=== PATIENT | male | born 1960 | race Caucasian/White ===

== ENCOUNTER 2017-11-06 07:19 | Observation (INO) | payer OTHER ==
[~2017-11-06 07:19] MED LIST: CEFAZOLIN 1 GM INJ; METOCLOPRAMIDE 10 MG INJ; ONDANSETRON 4 MG INJ
[2017-11-06] MEDS: SOD CHLORIDE 0.9% 1,000 ML IV ×3 (08:56→19:20)
[2017-11-06] MEDS ORDERED: MIDAZOLAM 1 MG/ML 2 ML INJ (09:01)
[2017-11-06] MEDS ORDERED: FENTAnyl 50 MCG/ML VIAL (09:01)
[2017-11-06] MEDS ORDERED: DEXAMETHASONE 4 MG/ML 1 ML INJ (09:02)
[2017-11-06] MEDS ORDERED: LIDOCAINE 2% (SDV) 5 ML INJ (09:02)
[2017-11-06] MEDS ORDERED: PROPOFOL 20 ML (09:02)
[2017-11-06] MEDS: BUPIVACAINE 0.25% (MPF) 30 ML INJ (09:12)
[2017-11-06] MEDS ORDERED: ROPIVACAINE 0.5 % 30 ML VIAL (10:22)
[2017-11-06] MEDS ORDERED: LABETALOL HCL 20MG INJ IV (10:30)
[2017-11-06] MEDS ORDERED: MEPERIDINE 25 MG INJ IV (10:30)
[2017-11-06] MEDS ORDERED: DIPHENHYDRAMINE 50 MG INJ IV (10:30)
[2017-11-06] MEDS ORDERED: IPRATROPIUM (NEB) 0.5 MG/2.5 ML AMP HHN (10:30)
[2017-11-06] MEDS ORDERED: hydrALAzine 20 MG INJ IV ×2 (10:30→13:00)
[2017-11-06] MEDS ORDERED: KETOROLAC 30 MG INJ IV (10:30)
[2017-11-06] MEDS ORDERED: FENTAnyl 50 MCG/ML VIAL IV ×2 (10:30)
[2017-11-06] MEDS ORDERED: HYDROmorphONE 1 MG/5 ML IV SYRINGE IV ×2 (10:30)
[2017-11-06] MEDS ORDERED: ONDANSETRON 4 MG INJ IV (10:30)
[2017-11-06] MEDS ORDERED: HYDROCODONE/APAP (5/325) TAB PO (11:00)
[2017-11-06] MEDS: morphine 2 MG INJ IV ×2 (13:48→18:00)
[2017-11-06] MEDS: CEFAZOLIN 2 GM/50 ML (PMX) 50 ML IVPB ×3 (13:59→22:10)
[2017-11-06] MEDS: NITROFURANTOIN (SR) 100 MG CAP PO (22:11)
[2017-11-07] MEDS: SOD CHLORIDE 0.9% 1,000 ML IV ×2 (03:50→18:38)
[2017-11-07 05:28] LABS: ADD MAN DIFF? NO
[2017-11-07 05:33] LABS: BASOPHILS % 0.2 % (0.0-2.0); EOSINOPHILS # 0.1 10^3/ul (0.0-0.5); EOSINOPHILS % 0.5 % (0.0-7.0); HEMATOCRIT 39.9 % (42.0-52.0); HEMOGLOBIN 13.6 g/dl (14.0-18.0); LYMPHOCYTES # 1.6 10^3/ul (0.8-2.9); LYMPHOCYTES % 14.4 % (15.0-51.0); MEAN CORPUSCULAR HEMOGLOBIN 30.6 pg (29.0-33.0); MEAN CORPUSCULAR HGB CONC 34.1 g/dl (32.0-37.0); MEAN CORPUSCULAR VOLUME 89.7 fl (82.0-101.0); MEAN PLATELET VOLUME 10.7 fl (7.4-10.4); MONOCYTE # 1.1 10^3/ul (0.3-0.9); NEUTROPHIL # 8.4 10^3/ul (1.6-7.5); NEUTROPHILS % 74.5 % (39.0-77.0); PLATELET COUNT 168 10^3/UL (140-415); RED BLOOD COUNT 4.45 10^6/ul (4.70-6.10); RED CELL DISTRIBUTION WIDTH 11.9 % (11.5-14.5)
[2017-11-07 05:33] LABS: WHITE BLOOD COUNT 11.3 10^3/ul (4.8-10.8)
[2017-11-07 05:56] LABS: ANION GAP 9 (8-16); BLOOD UREA NITROGEN 23 mg/dl (7-20); CARBON DIOXIDE 30 mmol/L (21-31); CHLORIDE 106 mmol/L (97-110); CREATININE 1.14 mg/dl (0.61-1.24); GLUCOSE 107 mg/dl (70-220); POTASSIUM 4.3 mmol/L (3.5-5.1); SODIUM 141 mmol/L (135-144)
[2017-11-07] MEDS: CEFAZOLIN 2 GM/50 ML (PMX) 50 ML IVPB (06:25)
[2017-11-07] MEDS: morphine 2 MG INJ IV ×3 (07:46→12:46)
[2017-11-07] MEDS: NITROFURANTOIN (SR) 100 MG CAP PO ×2 (08:34→21:19)
[2017-11-07] MEDS: HYDROCHLOROTHIAZIDE 12.5 MG CAP PO (08:34)
[2017-11-07] MEDS: KETOROLAC 15 MG INJ IV ×2 (14:38→21:26)
[2017-11-07] MEDS ORDERED: morphine LIQ (10 MG/5 ML) CUP PO (23:30)
[2017-11-08 05:09] LABS: ADD MAN DIFF? NO
[2017-11-08 05:23] LABS: WHITE BLOOD COUNT 8.3 10^3/ul (4.8-10.8)
[2017-11-08 05:23] LABS: BASOPHILS % 0.2 % (0.0-2.0); EOSINOPHILS # 0.2 10^3/ul (0.0-0.5); EOSINOPHILS % 2.6 % (0.0-7.0); HEMATOCRIT 42.2 % (42.0-52.0); HEMOGLOBIN 14.5 g/dl (14.0-18.0); LYMPHOCYTES # 1.9 10^3/ul (0.8-2.9); LYMPHOCYTES % 22.6 % (15.0-51.0); MEAN CORPUSCULAR HEMOGLOBIN 30.7 pg (29.0-33.0); MEAN CORPUSCULAR HGB CONC 34.4 g/dl (32.0-37.0); MEAN CORPUSCULAR VOLUME 89.4 fl (82.0-101.0); MEAN PLATELET VOLUME 10.5 fl (7.4-10.4); MONOCYTE # 0.9 10^3/ul (0.3-0.9); MONOCYTES % 10.8 % (0.0-11.0); NEUTROPHIL # 5.3 10^3/ul (1.6-7.5); NEUTROPHILS % 63.4 % (39.0-77.0); PLATELET COUNT 170 10^3/UL (140-415); RED BLOOD COUNT 4.72 10^6/ul (4.70-6.10)
[2017-11-08 05:50] LABS: ANION GAP 10 (8-16); BLOOD UREA NITROGEN 24 mg/dl (7-20); CALCIUM 8.4 mg/dl (8.4-10.2); CARBON DIOXIDE 30 mmol/L (21-31); CHLORIDE 104 mmol/L (97-110); CREATININE 1.18 mg/dl (0.61-1.24); GLUCOSE 91 mg/dl (70-220); POTASSIUM 4.4 mmol/L (3.5-5.1); SODIUM 140 mmol/L (135-144)
[2017-11-08] MEDS: SOD CHLORIDE 0.9% 1,000 ML IV (07:30)
[2017-11-08] MEDS: KETOROLAC 15 MG INJ IV (07:30)
[2017-11-08] MEDS: HYDROCHLOROTHIAZIDE 12.5 MG CAP PO (09:30)
[2017-11-08] MEDS: NITROFURANTOIN (SR) 100 MG CAP PO (09:30)
== END 2017-11-08 16:40 | disposition home or self-care (01) ==
LOC: SDS 07:19 → REC 10:36 → MS3 12:51 → PP2 17:30
DX: K40.31 Unilateral inguinal hernia, with obstruction, without gangrene, recurrent (principal); I10 Essential (primary) hypertension
CPT/HCPCS: 49521; 80048; 85025; 88302; 99217